=== PATIENT | male | born 1980 | race Caucasian/White ===

== ENCOUNTER 2016-04-26 20:59 | Emergency (ER) | payer OTHER ==
[~2016-04-26] VITALS: Ht 177.8 cm; Wt 80.0 kg
[2016-04-26 21:00] VITALS: BP 146/72; PULSE 104; RESP 18; TEMP 99.1; O2SAT 98
[2016-04-26 23:48] VITALS: BP 141/76; PULSE 103; RESP 18; O2SAT 98
[2016-04-26] MEDS ORDERED: MELO-1 PO (23:48)
[2016-04-26] MEDS ORDERED: AMOX875T PO (23:48)
[2016-04-26] MEDS ORDERED: NORC5TAB PO (23:48)
--- NOTE | 2016-04-27 01:02 | PD ---
HPI Chief Complaint: Complaint Time Seen by Provider: 00:46 Travel History International Travel<30 days: No Contact w/Intl Traveler<30days: No Traveled to known affect area: No History of Present Illness HPI 35yo M with PSH of vasectomy end of March presents to the ED with c/o pain in right testicle for 2 days. Pt also with URI symptoms and diagnosed with sinusitis by urgent care today and started on amoxicillin. Pt denies any fever , chest pain, sob, n/v, abdominal pain, penile discharge. PFSH Past Medical History Medical History: Denies Significant Hx Tetanus Vaccination: Unknown Influenza Vaccination: Yes Past Surgical History Genitourinary Surgery: Yes (VASECTOMY) Social History Alcohol Use: Yes (ONE DRINK DAILY) Tobacco Use: No Substance Use: No Allergies-Medications (Allergen,Severity, Reaction): Coded Allergies: No Known Allergies (Unverified , 04/26/16) Reported Meds & Prescriptions Reported Meds & Active Scripts Active Reported [place] (Hydrocodone-Acetaminophen) 5-325 mg Tab 1 Tab PO Q6H PRN Meloxicam 15 Mg Tab 15 Mg PO DAILY Amoxicillin 875 Mg Tab 875 Mg PO BID Review of Systems Except as stated in HPI: all other systems reviewed are Neg Physical Exam Narrative GENERAL: 35yo M not in distress. SKIN: Warm and dry. HEAD: Atraumatic. Normocephalic. NECK: Trachea midline. No JVD. CARDIOVASCULAR: Regular rate and rhythm. No murmur appreciated. RESPIRATORY: No accessory muscle use. Clear to auscultation. Breath sounds equal bilaterally. GASTROINTESTINAL: Abdomen soft, non-tender, nondistended. No rebound tenderness or guarding. : +TTP right testicle, right testicle is edematous. No rash on penis. No penile discharge. MUSCULOSKELETAL: No obvious deformities. No clubbing. No cyanosis. No edema. NEUROLOGICAL: Awake and alert. No obvious cranial nerve deficits. Motor grossly within normal limits. Normal speech. PSYCHIATRIC: Appropriate mood and affect; insight and judgment normal. Data Data Last Documented VS Vital Signs Date Time Temp Pulse Resp B/P Pulse Ox O2 Delivery O2 Flow Rate FiO2 04/27/16 02:22 100 18 114/54 98 Room Air 04/26/16 21:00 99.1 Orders Us Testicles W Doppler (04/27/16 ) Complete Blood Count With Diff (04/27/16 00:59) Basic Metabolic Panel (Bmp) (04/27/16 00:59) Lactic Acid Sepsis Protocol (04/27/16 00:59) Ketorolac Inj (Toradol Inj) (04/27/16 01:15) Ceftriaxone Inj (Rocephin Inj) (04/27/16 03:30) Lidocaine 1% Inj (50 Ml) (Xylocaine 1% I (04/27/16 03:30) Doxycycline (Vibramycin) (04/27/16 03:30) Labs Laboratory Tests Test 04/27/16 01:00 White Blood Count 18.3 TH/MM3 Red Blood Count 5.04 MIL/MM3 Hemoglobin 15.3 GM/DL Hematocrit 44.7 % Mean Corpuscular Volume 88.8 FL Mean Corpuscular Hemoglobin 30.4 PG Mean Corpuscular Hemoglobin 34.2 % Concent Red Cell Distribution Width 13.1 % Platelet Count 185 TH/MM3 Mean Platelet Volume 10.4 FL Neutrophils (%) (Auto) 90.2 % Lymphocytes (%) (Auto) 4.5 % Monocytes (%) (Auto) 4.9 % Eosinophils (%) (Auto) 0.2 % Basophils (%) (Auto) 0.2 % Neutrophils # (Auto) 16.5 TH/MM3 Lymphocytes # (Auto) 0.8 TH/MM3 Monocytes # (Auto) 0.9 TH/MM3 Eosinophils # (Auto) 0.0 TH/MM3 Basophils # (Auto) 0.0 TH/MM3 CBC Comment DIFF FINAL Differential Comment Sodium Level 138 MEQ/L Potassium Level 3.6 MEQ/L Chloride Level 105 MEQ/L Carbon Dioxide Level 24.2 MEQ/L Anion Gap 9 MEQ/L Blood Urea Nitrogen 11 MG/DL Creatinine 0.96 MG/DL Estimat Glomerular Filtration 90 ML/MIN Rate Random Glucose 97 MG/DL Lactic Acid Level 1.2 mmol/L Calcium Level 9.1 MG/DL MDM Medical Decision Making Medical Screen Exam Complete: Yes Emergency Medical Condition: Yes Interpretation(s) Last Impressions Scrotum Ultrasound 04/27/16 0000 Signed Impressions: Service Date/Time: April 01:31 - CONCLUSION: 1. No evidence of torsion 2. Findings compatible with epididymitis. Tony Cheney MD Laboratory Tests Test 04/27/16 01:00 White Blood Count 18.3 TH/MM3 (4.0-11.0) Red Blood Count 5.04 MIL/MM3 (4.50-5.90) Hemoglobin 15.3 GM/DL (13.0-17.0) Hematocrit 44.7 % (39.0-51.0) Mean Corpuscular Volume 88.8 FL (80.0-100.0) Mean Corpuscular Hemoglobin 30.4 PG (27.0-34.0) Mean Corpuscular Hemoglobin 34.2 % Concent (32.0-36.0) Red Cell Distribution Width 13.1 % (11.6-17.2) Platelet Count 185 TH/MM3 (150-450) Mean Platelet Volume 10.4 FL (7.0-11.0) Neutrophils (%) (Auto) 90.2 % (16.0-70.0) Lymphocytes (%) (Auto) 4.5 % (9.0-44.0) Monocytes (%) (Auto) 4.9 % (0.0-8.0) Eosinophils (%) (Auto) 0.2 % (0.0-4.0) Basophils (%) (Auto) 0.2 % (0.0-2.0) Neutrophils # (Auto) 16.5 TH/MM3 (1.8-7.7) Lymphocytes # (Auto) 0.8 TH/MM3 (1.0-4.8) Monocytes # (Auto) 0.9 TH/MM3 (0-0.9) Eosinophils # (Auto) 0.0 TH/MM3 (0-0.4) Basophils # (Auto) 0.0 TH/MM3 (0-0.2) CBC Comment DIFF FINAL Differential Comment Sodium Level 138 MEQ/L (136-145) Potassium Level 3.6 MEQ/L (3.5-5.1) Chloride Level 105 MEQ/L (98-107) Carbon Dioxide Level 24.2 MEQ/L (21.0-32.0) Anion Gap 9 MEQ/L (5-15) Blood Urea Nitrogen 11 MG/DL (7-18) Creatinine 0.96 MG/DL (0.60-1.30) Estimat Glomerular Filtration 90 ML/MIN (>89) Rate Random Glucose 97 MG/DL (74-106) Lactic Acid Level 1.2 mmol/L (0.4-2.0) Calcium Level 9.1 MG/DL (8.5-10.1) Differential Diagnosis Orchitis vs. epididymitis vs. torsion vs. abscess Narrative Course 35yo M with right testicular pain for 2 days. Labs reviewed, leukocytosis at 18.3. Lactic acid 1.2. BMP unremarkable. US scrotum showed no evidence of torsion. Findings compatible with epididymitis. Pt given ceftriaxone 250mg IM here and first dose of doxycycline 100mg PO. Will prescribe 10 days of doxycycline. Return precautions given. Pt is nontoxic appearing. Diagnosis Primary Impression: Epididymitis Patient Instructions: General Instructions Departure Forms: Tests/Procedures Additional Instructions: Please follow up with your urologist in 3-7 days. Return to the ED if symptoms worsen. Med/Other Pt SpecificInfo: Prescription(s) given Scripts Ibuprofen 600 Mg [id number] Mg PO Q8HR PRN (PAIN) #20 TAB Ref 0 Prov:Shannon Hernandez DO 04/27/16 Doxycycline Hyclate 100 Mg [id number] Mg PO BID 10 Days Ref 0 Prov:Shannon Hernandez DO 04/27/16 Disposition: 01 DISCHARGE HOME Condition: Stable Shannon Hernandez DO Apr 27, 2016 01:02
[2016-04-27] MEDS ORDERED: KETOROLAC TROMETHAMINE 30 MG/ML (IVP) VIAL IV PUSH ONE (01:15)
[2016-04-27 01:23] LABS: AUTOMATED NEUTROPHIL # 16.5 TH/MM3 (1.8-7.7); BASOPHIL % 0.2 % (0.0-2.0); EOSINOPHIL % 0.2 % (0.0-4.0); HEMATOCRIT 44.7 % (39.0-51.0); HEMO FLAGS DIFF FINAL; LYMPH % 4.5 % (9.0-44.0); LYMPHOCYTE # 0.8 TH/MM3 (1.0-4.8); MEAN CELL VOLUME 88.8 FL (80.0-100.0); MEAN CORPUSCULAR HEMOGLOBIN 30.4 PG (27.0-34.0); MEAN CORPUSCULAR HGB CONC 34.2 % (32.0-36.0); MONO % 4.9 % (0.0-8.0); NEUT % 90.2 % (16.0-70.0); PLATELET COUNT 185 TH/MM3 (150-450); RED BLOOD COUNT 5.04 MIL/MM3 (4.50-5.90); RED CELL DISTRIBUTION WIDTH 13.1 % (11.6-17.2); WHITE BLOOD COUNT 18.3 TH/MM3 (4.0-11.0)
[2016-04-27 01:39] LABS: BICARBONATE 24.2 MEQ/L (21.0-32.0); POTASSIUM 3.6 MEQ/L (3.5-5.1)
--- NOTE | 2016-04-27 02:14 | RADRPT ---
EXAM DATE/TIME: 04/27/2016 01:31 [facility] COMPARISON: No previous studies available for comparison. INDICATIONS : Pain. MEDICAL HISTORY : Right testicle pain. SURGICAL HISTORY : Vasectomy March 2016. ENCOUNTER: Initial ACUITY: 2 days PAIN SCORE: 10/10 LOCATION: Bilateral testicles. MEASUREMENTS: RIGHT TESTICLE: 5.6 x 4.1 x 3.3 cm LEFT TESTICLE: 4.7 x 3.8 x 2.9 cm FINDINGS: Ultrasound examination of the testicles demonstrates normal size bilaterally. There is normal Doppler flow bilaterally without evidence of mass. The epididymis is enlarged bilaterally right greater than left which may reflect epididymitis. Bilateral varicoceles are also present which increase with Vals nieto maneuver. CONCLUSION: 1. No evidence of torsion 2. Findings compatible with epididymitis. Tony Cheney MD on April 27, 2016 at 2:11 Board Certified Radiologist. This report was verified electronically.
[2016-04-27 02:22] VITALS: BP 114/54; PULSE 100; RESP 18; O2SAT 98
[2016-04-27] MEDS ORDERED: DOXY100C PO (03:28)
[2016-04-27] MEDS ORDERED: IBUP-232 PO (03:28)
[2016-04-27] MEDS ORDERED: DOXYCYCLINE HYCLATE 100 MG CAP PO ONE (03:30)
[2016-04-27] MEDS ORDERED: cefTRIAXone 250 MG VIAL IM ONE (03:30)
[2016-04-27] MEDS ORDERED: LIDOCAINE HCL 1% 50 ML VIAL IM ONE (03:30)
[2016-04-27] MEDS ORDERED: oxyCODONE/ACETAMINOPHEN 5 MG/325 MG TAB PO ONE (04:00)
== END 2016-04-27 04:28 | disposition home or self-care (01) ==
LOC: NEPC 20:59
DX: N45.1 Epididymitis (principal)
CPT/HCPCS: 76870; 80048; 83605; 85025; 93975; 96372; 96374; 99284; J0696; J1885